=== PATIENT | female | born 1985 | race African-American/Black ===

== ENCOUNTER 2022-02-07 16:32 | Outpatient (CLI) | payer OTHER, SELFPAY ==
[2022-02-07] VITALS (19 sets, daily range): BP systolic 139–167; BP diastolic 72–91; PULSE 66–83; BMI 35.2
--- NOTE | 2022-02-07 16:32 | OBADM ---
This patient, Gita Calix, admitted to the OB room [facility] for observation. Patient oriented to hospital policies and general routines including ID bracelet, bed and alarms, visiting hours, pain management, procedures, bathroom and other care routines, personal items, smoking policy, room service/diet, and visiting hours. Patient/Family are encouraged to report perceived risks to care and to ask questions if they do not understand what they are told or what they should do.
--- NOTE | 2022-02-07 17:05 | PC.NURSE ---
Pt reports receiving care at the [facility] and [facility]. Pt reports being a with a due date 03/06. Pt has hx of preeclampsia with her last 2 and delivered at 36 and 37 weeks. pt denies having preeclampsia at this time. Pt reports a headache for 2 days and denies taking any pain medication. pt denies visual disturbances, no abdominal pain and trace swelling in her bilateral lower extremities.
[2022-02-07 17:21] LABS: Eosinophils Percent Auto 0.2 % (0-4.4); Hematocrit 28.9 % (37.0-47.0); Hemoglobin 9.3 g/dL (12.0-15.0); Immature Granulocyte Absolute 0.03 K/mm3 (0.00-0.031); Immature Granulocyte Percent A 0.4 % (0-0.5); Lymphocytes Absolute Auto 1.71 K/mm3 (0.9-3.2); Lymphocytes Percent Auto 20.9 % (18.3-44.2); Mean Corpuscular HGB Conc 32.2 g/dl (32-36); Mean Corpuscular Hemoglobin 28.4 pg (26-34); Mean Corpuscular Volume 88.1 fl (80-100); Mean Platelet Volume 8.9 fl (7.4-10.4); Monocytes Absolute Auto 0.5 K/mm3 (0.1-0.6); Monocytes Percent Auto 6.3 % (2.6-8.5); Neutrophils Absolute Auto 5.9 K/mm3 (1.3-6.7); Neutrophils Percent Auto 72.2 % (45.5-73.1); Platelet Count Result 293 k/mm3 (150-375); Red Blood Count 3.28 M/mm3 (4.2-5.4); Red Cell Distribution Width 15.1 % (11.5-14.5); White Blood Count 8.2 K/mm3 (4.5-10.0)
[2022-02-07 17:43] LABS: Alanine Aminotransferase 7 U/L (6-35); Alkaline Phosphatase 136 U/L (38-126); Anion Gap 6 mmol/L (8-16); Aspartate Amino Transferase 20 U/L (14-36); Bilirubin,Total 0.2 mg/dL (0.2-1.3); Blood Urea Nitrogen 7 mg/dL (7-17); Calcium 8.8 mg/dL (8.4-10.2); Carbon Dioxide 22 mmol/L (22-30); Chloride 106 mmol/L (98-107); Estimated CRCL calculation 155 ml/min; Estimated Glomerular Filt Rate > 60; Glucose 89 mg/dL (65-110); Potassium 3.5 mmol/L (3.4-5.0); Sodium 134 mmol/L (137-145); Uric Acid 5.4 mg/dL (2.5-7.5)
--- NOTE | 2022-02-07 17:48 | PC.NURSE ---
Dr. Granda notified of walk in pt from the ER. Blood draw results reports, blood pressures and tracing reviewed with provider. Pt has complaints of headache. 1 g Tylenol x [address] Granda would like baby to stay on the monitor at this time and report urine results when received.
[2022-02-07 17:54] LABS: Appearance Urine Cloudy (Clear); Bilirubin Urine Negative (Negative); Color Urine Yellow (Yellow); Glucose Urine UA Negative (Negative); Ketones Urine Trace mg/dL (Negative); Leukocyte Esterase Ur 1+ LEU/UL (NEGATIVE); Nitrate Urine Negative (Negative); Protein Urine 1+ mg/dL (Negative); Specific Grav Ur 1.025 (1.001-1.035); Urobilinogen Urine 0.2 mg/dL (<2.0)
[2022-02-07] MEDS: ACETAMINOPHEN 500 MG TABLET 1000 MG PO (17:56)
[2022-02-07 17:58] LABS: Bacteria Urine Trace /hpf; Mucus Urine Rare /lpf; Squamous Epithelial Cell Urine Moderate /hpf (Few); WBC Urine 21-30 /hpf (0-3)
[2022-02-07 18:00] LABS: Add Urine Microscopic? YES; Blood Urine Trace-Intact (Negative)
[2022-02-07 18:01] LABS: Creatinine Urine 265.9 mg/dL; Total Protein Urine Random 11 mg/dL; Ur Ttl Prot Creatinine Ratio 0.04 mg/mg (0-0.20)
--- NOTE | 2022-02-07 18:11 | PC.NURSE ---
Dr. Granda updated on pt urine results. MD ordered SVE, BP Q15 for 4 hours, continue watching tracing and po Hydrate the pt. Call MD with any concerns.
== END 2022-02-07 22:05 | disposition home or self-care (01) ==
LOC: ANHOBOP 16:44 → ANHOBPP 16:48
PROVIDERS: Visit Provider Obstetrics & Gynecology
DX: O13.9 Gestational [pregnancy-induced] hypertension without significant proteinuria, unspecified trimester (principal); Z3A.00 Weeks of gestation of pregnancy not specified
CPT/HCPCS: 36415; 80053; 81001; 82570; 84156; 84550; 85025; 87086; 87088; 99199; A9270